=== PATIENT | male | born 1975 | race Caucasian/White ===

== ENCOUNTER 2016-02-20 10:02 | Outpatient (RCR) | payer MEDICARE, MEDICAID ==
[~2016-02-20 10:02] MED LIST: CLARITIN 1010 MG/TAB PO; FIBER CHOICE1 CTB PO; KEPPRA1000 MG PO; LAMICTAL200 MG PO; LEXAPRO20 MG PO; MULTIPLE VITAMI1 CAP PO; NASONEX SPRAY17 GM NS; NEXIUM 40MG40 MG PO; TOPAMAX 100MG100 M1 PO; TYLENOL 325MG325 MG PO; VITAMIN D50000 I2 PO; ZONEGRAN 100MG100 MG PO
== END 2016-04-21 12:40 | disposition still patient (30) ==
LOC: WSPT 10:02
DX: R27.0 Ataxia, unspecified (principal)
CPT/HCPCS: G8979-GP; G8980-GP

== ENCOUNTER 2018-11-29 10:02 | Emergency (ER) | payer MEDICARE, MEDICAID ==
[~2018-11-29] VITALS: Wt 77.3 kg
[2018-11-29] MEDS ORDERED: ALEVE 220MG220 MG PO (11:00)
[2018-11-29] MEDS ORDERED: PROTONIX 40MG T40 MG PO (11:01)
[2018-11-29] MEDS ORDERED: CEPHALEXIN500 M1 PO (11:42)
[2018-11-29 12:10] VITALS: BP 117/85; PULSE 83
== END 2018-11-29 12:10 | disposition home or self-care (01) ==
LOC: COL.ER 10:02
DX: S01.511A Laceration without foreign body of lip, initial encounter (principal); G40.909 Epilepsy, unspecified, not intractable, without status epilepticus; K21.9 Gastro-esophageal reflux disease without esophagitis; F32.9 Major depressive disorder, single episode, unspecified; W22.8XXA Striking against or struck by other objects, initial encounter; Y92.009 Unspecified place in unspecified non-institutional (private) residence as the place of occurrence of the external cause

== ENCOUNTER → 2021-08-26 | Outpatient (CLI) | payer MEDICARE, MEDICAID ==
[~2021-08-26] MED LIST changes: +ALEVE 220MG220 MG PO; +CEPHALEXIN500 M1 PO; +EPIDIOLEX100 MG/1 M PO; +FIBERCON PO; +FLOMAX 0.40.4 MG/CAP PO; +LAMICTAL150 MG PO; +NAPROXEN 3375 MG/TAB PO; +NASONEX SPRAY17 GM IH; +NORCO 325 MG-51 TAB PO; +PROTONIX 40MG T40 MG PO; +TAB-A-VITE1 TA3 PO; +TINACTIN1% TP; +VITAMIND3 5000 PO; +VOLTAREN GEL 1%1 TU TP
== END ==
LOC: COL.RAD 14:01
DX: N20.0 Calculus of kidney (principal)

== ENCOUNTER 2021-08-29 10:40 | Day surgery (SDC) | payer MEDICARE, MEDICAID ==
[~2021-08-29] VITALS: Ht 172.7 cm; Wt 73.2 kg
[~2021-08-29 10:40] MED LIST changes: -EPIDIOLEX100 MG/1 M PO; -FIBERCON PO; -FLOMAX 0.40.4 MG/CAP PO; -LAMICTAL150 MG PO; -NAPROXEN 3375 MG/TAB PO; -NASONEX SPRAY17 GM IH; -NORCO 325 MG-51 TAB PO; -TAB-A-VITE1 TA3 PO; -TINACTIN1% TP; -VITAMIND3 5000 PO; -VOLTAREN GEL 1%1 TU TP
[2021-08-29 12:19] VITALS: BP 133/80; PULSE 85; TEMP 97.7
[2021-08-29] MEDS ORDERED: VITAMIND3 5000 PO (12:39)
[2021-08-29] MEDS ORDERED: PROTONIX 40MG T40 MG PO (12:40)
[2021-08-29] MEDS ORDERED: NASONEX SPRAY17 GM IH (12:42)
[2021-08-29] MEDS ORDERED: FIBERCON PO (12:44)
[2021-08-29] MEDS ORDERED: TAB-A-VITE1 TA3 PO (12:44)
[2021-08-29] MEDS ORDERED: LAMICTAL150 MG PO (12:45)
[2021-08-29] MEDS ORDERED: LEXAPRO20 MG PO (12:46)
[2021-08-29] MEDS ORDERED: EPIDIOLEX100 MG/1 M PO (12:48)
[2021-08-29] MEDS ORDERED: VOLTAREN GEL 1%1 TU TP (12:49)
[2021-08-29] MEDS ORDERED: NAPROXEN 3375 MG/TAB PO (12:49)
[2021-08-29] MEDS ORDERED: TINACTIN1% TP (12:51)
[2021-08-29] MEDS ORDERED: CLARITIN 1010 MG/TAB PO (12:52)
[2021-08-29] MEDS ORDERED: FLOMAX 0.40.4 MG/CAP PO (14:08)
[2021-08-29] MEDS ORDERED: NORCO 325 MG-51 TAB PO (14:09)
[2021-08-29 14:26] VITALS: TEMP 97.3
[2021-08-29 14:45] VITALS: BP 124/78; PULSE 73
--- NOTE | 2021-08-29 14:45 | NUR ---
Patient returns to room 6 per cart from PACU accompanied by Clair DALTON. Arouses to verbal stimuli. Brother in the room and does sign language. IV fluids infusing. On oxygen at 2l per nasal cannuala. Temp 98.0. Siderails up x2 and allowed to rest.
[2021-08-29 15:00] VITALS: BP 120/78; PULSE 70
--- NOTE | 2021-08-29 15:00 | NUR ---
Indicates to brother that he needs to urinate. Brother assists patient to edge of cart and patient voids 100cc's charles red urine. IV continues to infuse.
[2021-08-29 15:15] VITALS: BP 123/71; PULSE 79
--- NOTE | 2021-08-29 15:15 | NUR ---
Eating ice cream and drinking water. Denies pain when asked by brother.
--- NOTE | 2021-08-29 15:31 | NUR ---
Brother requests patient have pain medication prior to discharge and states that they have a 2 [address] ride home. Percocet given. IV discontinued. Brother assists patient with dressing and patient tolerates will. Very pleasant and cooperative.
--- NOTE | 2021-08-29 15:43 | NUR ---
Dismissal instructions given to brother and he voices understanding of these. Provided office number for questions and concerns.
--- NOTE | 2021-08-29 15:47 | NUR ---
Patient dismissed to care of brother and taken to vehicle per wheelchair and assisted into Jeep. Seat belt on. Dismissal instructions in hand. Will go to [facility] and leaf size picker prescritions.
== END 2021-08-29 15:47 | disposition home or self-care (01) ==
LOC: SDCO 10:40
DX: N20.2 Calculus of kidney with calculus of ureter (principal)
CPT/HCPCS: C1758; C1769; C2617; J0690; J1100; J1885; J2405; J2704; J3010; J7120

== ENCOUNTER 2021-09-19 09:27 | Day surgery (SDC) | payer MEDICARE, MEDICAID ==
[~2021-09-19] VITALS: Ht 172.7 cm; Wt 73.9 kg
[~2021-09-19 09:27] MED LIST changes: +EPIDIOLEX100 MG/1 M PO; +FIBERCON PO; +FLOMAX 0.40.4 MG/CAP PO; +LAMICTAL150 MG PO; +NAPROXEN 3375 MG/TAB PO; +NASONEX SPRAY17 GM IH; +NORCO 325 MG-51 TAB PO; +TAB-A-VITE1 TA3 PO; +TINACTIN1% TP; +VITAMIND3 5000 PO; +VOLTAREN GEL 1%1 TU TP
[2021-09-19 11:24] VITALS: BP 108/78; PULSE 77; TEMP 97.2
[2021-09-19 11:55] VITALS: BP 102/73; PULSE 67; TEMP 97.5
[2021-09-19 12:10] VITALS: BP 103/74; PULSE 73; TEMP 97.7
[2021-09-19 12:25] VITALS: BP 110/74; PULSE 78; TEMP 97.6
[2021-09-19 12:40] VITALS: BP 98/70; PULSE 82; TEMP 97.8
[2021-09-19 13:10] VITALS: BP 101/63; PULSE 84; TEMP 97.8
--- NOTE | 2021-09-19 13:20 | NUR ---
DISCHARGE EDUCATION COMPLETED WITH PT'S BROTHER. VERBALIZED UNDERSTANDING OF HOME AND FOLLOW UP CARE. ALL QUESTIONS ANSWERED. DISCHARGE PAPERWORK GIVEN TO PT'S BROTHER.
--- NOTE | 2021-09-19 13:35 | NUR ---
PT OFF UNIT PER PERSONAL WHEELCHAIR. PT DISCHARGE TO HOME WITH BROTHER PER PERSONAL VEHICLE.
== END 2021-09-19 13:35 | disposition home or self-care (01) ==
LOC: SDCO 09:27
DX: T19.1XXA Foreign body in bladder, initial encounter (principal)
CPT/HCPCS: J0690; J1100; J1885; J2405; J2704; J3010; J7120

== ENCOUNTER 2021-10-23 08:10 | Day surgery (SDC) | payer MEDICARE, MEDICAID ==
[~2021-10-23] VITALS: Ht 175.3 cm; Wt 76.9 kg
[2021-10-23] MEDS ORDERED: VITAMIND3 5000 PO (08:43)
[2021-10-23 09:36] VITALS: BP 119/87; PULSE 79; TEMP 98.3
[2021-10-23 13:30] VITALS: BP 117/54; PULSE 89; TEMP 97.1
--- NOTE | 2021-10-23 13:30 | NUR ---
PATIENT ARRIVES TO ROOM 1 VIA CART. PATIENT IS ALERT, HE IS NON-VERBAL SO DAD COMMUNICATES FOR HIM. VITAL SIGNS WNL. PATIENT SIGNED TO DAD THAT HE NEEDED TO USE A URINAL. URINAL GIVEN AND HE VOIDED 100 CC'S. PATIENT DOESN'T WANT ANYTHING TO EAT OR DRINK, HE WOULD LIKE TO REST. WILL CONTINUE TO MONITOR.
[2021-10-23 13:45] VITALS: BP 107/61; PULSE 83
--- NOTE | 2021-10-23 13:45 | NUR ---
PATIENT IS RESTING COMFORTABLY. VITAL SIGNS WNL. FATHER STATES HE DOESN'T NEED ANYTHING AT THIS TIME.
[2021-10-23 14:00] VITALS: BP 118/61; PULSE 85
--- NOTE | 2021-10-23 14:00 | NUR ---
PATIENT IS STILL RESTING COMFORTABLY. HIS BROTHER STATES THAT HE NORMALLY TAKES A WHILE TO WAKE UP FROM ANESTHESIA. VITAL SIGNS WNL. WILL CONTINUE TO MONITOR.
--- NOTE | 2021-10-23 14:57 | NUR ---
PATIENT IS AWAKE, HE REQUESTS ICE CREAM AND A SPRITE. HE IS TOLERATING THEM WELL. VITAL SIGNS WNL. WILL CONTINUE TO MONITOR.
[2021-10-23 15:00] VITALS: BP 132/51; PULSE 97; TEMP 97
== END 2021-10-23 15:20 | disposition home or self-care (01) ==
LOC: SDCO 08:10
DX: K02.9 Dental caries, unspecified (principal); Q27.0 Congenital absence and hypoplasia of umbilical artery; G40.909 Epilepsy, unspecified, not intractable, without status epilepticus; F48.9 Nonpsychotic mental disorder, unspecified
CPT/HCPCS: J0690; J1100; J2405; J2704; J3010; J7120

== ENCOUNTER 2021-11-05 11:00 | Outpatient (RCR) | payer MEDICARE, MEDICAID | END 2021-11-09 | disposition home or self-care (01) | LOC: MKS.ESL.PT | DX: Q27.9 Congenital malformation of peripheral vascular system, unspecified (principal) ==

== ENCOUNTER 2021-12-08 11:00 | Outpatient (RCR) | payer MEDICARE, MEDICAID | END 2021-12-10 | disposition home or self-care (01) | LOC: MKS.ESL.PT | DX: Q27.9 Congenital malformation of peripheral vascular system, unspecified (principal); R53.1 Weakness ==

== ENCOUNTER 2022-02-05 07:44 | Day surgery (SDC) | payer MEDICARE, MEDICAID ==
[~2022-02-05] VITALS: Ht 175.3 cm; Wt 76.9 kg
[2022-02-05] VITALS (7 sets, daily range): BP systolic 105–121; BP diastolic 65–86; PULSE 86–100; TEMP 97.4–98.1
--- NOTE | 2022-02-05 15:25 | NUR ---
1330 RETURNS TO ROOM 7 FROM PACU PER CART. DROWSY, AROUSES EASILY TO TOUCH. PATIENT CALM, RESP UNLABORED. BROTHER AT SIDE. NO ORAL BLEEDING OBSERVED. COMMUNICATION WITH PATIENT DONE WITH BROTHER'S ASSISTANCE. 1400 AWAKE, ALERT. COOPERATIVE. TOLERATES PO WATER. SWALLOWS WITHOUT DIFFICULTY. 1430 AWAKE. VERY COOPERATIVE. VITAL SIGNS STABLE. 1500 DISCHARGE INSTUCTIONS REVIEWED WITH PATRICK, PATIENT'S MECHANICAL INTERN. COPY OF INSTRUCTIONS PROVIDED AT DISCHARGE. 1515 SITS ON EDGE OF BED. DRESSES WITH ASSISTANCE THEN TO WHEELCHAIR TO BATHROOM. STANDS WITH ASSISTANCE. VOIDS. 1525 DISCHARGED PER WHEELCHAIR TO [facility]. ACCOMPANIED BY THIS NURSE AND PATRICK WHO WILL TRANSPORT PATIENT TO [facility].
== END 2022-02-05 15:25 | disposition home or self-care (01) ==
LOC: SDCO 07:44
DX: K02.9 Dental caries, unspecified (principal); F79 Unspecified intellectual disabilities; H90.5 Unspecified sensorineural hearing loss; Q03.9 Congenital hydrocephalus, unspecified; G40.909 Epilepsy, unspecified, not intractable, without status epilepticus; K21.9 Gastro-esophageal reflux disease without esophagitis
CPT/HCPCS: J0690; J1100; J2250; J2405; J2704; J3010; J7120

== ENCOUNTER 2022-04-29 11:15 | Outpatient (RCR) | payer MEDICARE, MEDICAID ==
[2022-05-01] MEDS ORDERED: CEFTIN 250250 MG/TAB PO (23:19)
[2022-05-01] MEDS ORDERED: PRELONE15 MG/5 ML PO (23:19)
== END 2022-05-12 | disposition home or self-care (01) ==
LOC: MKS.ESL.PT
DX: Q27.9 Congenital malformation of peripheral vascular system, unspecified (principal)

== ENCOUNTER 2022-07-08 11:15 | Outpatient (RCR) | payer MEDICARE, MEDICAID ==
[~2022-07-08 11:15] MED LIST changes: +CEFTIN 250250 MG/TAB PO; +PRELONE15 MG/5 ML PO
== END 2022-07-10 | disposition home or self-care (01) ==
LOC: MKS.ESL.PT
DX: Q27.9 Congenital malformation of peripheral vascular system, unspecified (principal); R53.1 Weakness; R26.89 Other abnormalities of gait and mobility

== ENCOUNTER 2022-08-05 11:15 | Outpatient (RCR) | payer MEDICARE, MEDICAID | END 2022-08-09 | disposition home or self-care (01) | LOC: MKS.ESL.PT | DX: Q27.9 Congenital malformation of peripheral vascular system, unspecified (principal); R53.1 Weakness; R26.89 Other abnormalities of gait and mobility ==

== ENCOUNTER 2023-08-19 16:12 | Outpatient (RCR) | payer MEDICARE, MEDICAID ==
[~2023-08-19 16:12] MED LIST changes: -NASONEX SPRAY17 GM IH; +TAB-A-VITE TA400 MCG PO; -TAB-A-VITE1 TA3 PO
[2023-08-23] MEDS ORDERED: EC-NAPROSYN375 MG PO (10:21)
[2023-08-23] MEDS ORDERED: [UNRECOGNIZED DRUG - OTHER] TOP (10:21)
== END 2023-09-10 | disposition home or self-care (01) ==
LOC: MKS.ESL.PT
DX: Q03.9 Congenital hydrocephalus, unspecified (principal); Z91.81 History of falling

== ENCOUNTER 2023-08-22 11:20 | Inpatient (IN) | payer MEDICARE, MEDICAID ==
[2023-08-22] VITALS (8 sets, daily range): BP systolic 68–108; BP diastolic 54–85; PULSE 83–112; TEMP 97.4–98.5
[~2023-08-22] VITALS: Ht 172.7 cm; Wt 67.0 kg
[2023-08-22 11:45] LABS: HEMATOCRIT 41.2 % (42.0-52.0); HEMOGLOBIN 13.8 g/dl (13.5-18.0); MEAN CELL VOLUME 97 fl (80.0-100.0); MEAN CORPUSCULAR HEMOGLOBIN 32 pg (27-31); MEAN CORPUSCULAR HGB CONC 34 g/dl (33.0-37.0); MEAN PLATELET VOLUME 10.1 fl (7.4-10.4); PLATELET COUNT 274 K/mm3 (130-400); RED BLOOD COUNT 4.27 M/mm3 (4.20-5.60)
[2023-08-22] MEDS ORDERED: Etomidate 20 MG/10 ML VIAL IV ONE (11:45)
[2023-08-22] MEDS ORDERED: NS 1,000 ML IV ONE ×2 (11:45→13:30)
[2023-08-22] MEDS ORDERED: Rocuronium 50 MG/5 ML Multi-Dose VIAL IV ONE (11:45)
[2023-08-22 11:58] LABS: ALBUMIN 3.7 g/dL (3.5-5.0); BILIRUBIN,TOTAL 0.7 mg/dL (0.2-1.2); CALCIUM 9.2 mg/dL (8.4-10.2); CREATININE, serum 1.27 mg/dL (0.72-1.25); POTASSIUM 3.2 mEq/L (3.5-4.5); TOTAL PROTEIN 6.4 g/dl (6.2-8.1)
[2023-08-22 12:17] LABS: COLLECTION METHOD CATHETER
[2023-08-22 12:26] LABS: BAND 34 % (0-10); LYMPHOCYTE 4 % (20.0-51.0); METAMYELOCYTE 6 % (0-0); NEUTROPHILS 52 % (42.0-75.2); PLATELET ESTIMATE NORMAL (NORMAL)
[2023-08-22 12:27] LABS: URINE APPEARANCE CLOUDY (CLEAR/HAZY); URINE BLOOD 1+ (NEGATIVE); URINE COLOR Dark Yellow (YELLOW); URINE GLUCOSE NEGATIVE (NEGATIVE); URINE KETONE TRACE (NEGATIVE); URINE NITRATE NEGATIVE (NEGATIVE); URINE PROTEIN(semi-quant) 1+ (NEGATIVE)
[2023-08-22] MEDS ORDERED: Morphine 4 MG/ML VIAL IV ONE (15:15)
--- NOTE | 2023-08-22 15:44 | NUR ---
PT EXTUBATED WITHOUT COMPLICATIONS TO RA SPO2 97%.... RN IN ROOM SISTER AND BROTHER AT BEDSIDE.
[2023-08-22] MEDS ORDERED: Albuterol 0.083% Neb Soln 2.5 MG/3 ML UD IH PRN (16:00)
[2023-08-22] MEDS ORDERED: LORazepam 2 MG/ML 1 ML VIAL IV PRN (16:30)
[2023-08-22] MEDS ORDERED: Ondansetron 4 MG/2 ML VIAL IV PRN (16:30)
[2023-08-22] MEDS ORDERED: Morphine 4 MG/ML VIAL IV PRN (16:30)
[2023-08-22] MEDS ORDERED: *Potassium Replacement Protocol MC SCH (16:30)
[2023-08-22] MEDS ORDERED: Scopolamine 1 MG Delivered 3-Day PATCH TD ONE (16:30)
--- NOTE | 2023-08-22 16:50 | NUR ---
Pt admitted to medical unit to room 358. Pt is alert but not oriented with cognitive deficits. Admission intake and physical assessment completed. Pt unable to express verbally. Pt is deaf, and communicates with signs. Brother DPOA at bedside. Advance directives in pt's chart. Hansen catheter in place with dark yellow, and cloudy urine in place. Oxymask at 10L. RAC and LAC INT with skin intact are in place. Tele placed. Pt on seizure precautions, and fall risk. SCDs in place. Bed in lowest position. Belongings and call light within reach.
--- NOTE | 2023-08-22 18:50 | NUR ---
PATIENT RESTING SITTING UP IN BED WITH BROTHER AT BEDSIDE WITH TV ON WITH NO ACUTE DISTRESS NOTED. PATIENT ON 10 LITERS VIA OXY MASK. INTs TO RIGHT AND LEFT ACs INTACT WITH NO COMPLICAITONS NOTED. ADAME CATH INTACT, PATENTS, AND LEAKING. PATIENT AGITATED WITH FEELING OF NEEDING TO GO PEE. PATIENT CARE ASSUMED FROM [facility]. BED IN LOW POSITION WITH WHEELS LOCKED WITH RAILS UP X3 AND CALL LIGHT WITHIN REACH. SEIZURE PRECAUTIONS IN PLACE. BED ALARM ON. 1902- SEIZURE LIKE ACTIVITY NOTED IN PATIENT WITH ARMS STIFF AND HEAD TILTING BACK. EPISODE LASTED ABOUT 30 SECONDS. PATIENT ABLE TO SIGN HE WAS OKAY TO BROTHER ONCE OVER. 1907- SECOND SERIZURE LIKE ACTIVITY NOTED IN PATIENT WITH ARMS DRAWING INTO POSITION AND HEAD TILTING BACK. EPISODE LASTED ABOUT 15 SECONDS. PATIENT ABLE TO SIGN TO HIS BROTHER HE WAS OKAY. 1909- ADAME CATHETER DISCONTINUED WITH 10 ML OF WATER REMOVED AND CATHETER PULLED OUT INTACT. KAREN CARE PROVIDED AND PATIENT VOIDED 5 ML INTO URINAL AFTER. ADAME BAG EMPTIED OF 200 ML OF CLEAR ARAM URINE. PATIENT TOLERATED WELL. RASH NOTED TO LOWER ABDOMEN FOLD AND KAREN AREA. BROTHER VERBALIZED UNDERSTANDING THAT HOSPITALIST WOULD BE CALLED. DPOA REQUSTED WATER, ICE, SPRITE, AND SOMETHING FOR PATIENT TO EAT. PRIMARY NURSE INFORMED DPOA THAT SHE WOULD BRING SOME BACK. 1914- DPOA STATED PATIENT HAD 3 MORE SEIZURES WHILE PRIMARY NURSE WAS OUT OF ROOM. PATIENT GIVEN PITCHER OF WATER AND ICE, SPRITE, APPLE SAUCE, JELLO, AND PUDDING. DPOA STATES WHEN PATIENT IS ANXIOUS HE HAS MORE SERIZURE ACTIVITY. PRIMARY NURSE ASKED DPOA ABOUT MD ORDER FOR ATIVAN. DPOA AGREED THAT WOULD HELP.
--- NOTE | 2023-08-22 19:02 | NUR ---
DPOA states that the patient is unconfortable with the [place] cathter, and per JACKI White, orders received to DC [place] catheter.
--- NOTE | 2023-08-22 19:45 | NUR ---
PATIENT RESTING IN BED WITH BROTHER AT BEDSIDE WITH TV ON WITH NO ACUTE DISTRESS NOTED. PATIENT ON 8 LITERS OF OXYMASK. ZOSYN INFUSING INTO LEFT AC AND INT TO RIGHT AC INTACT WITH NO COMPLICATIONS NOTED FROM EITHER. ASSESSMENT AND MEDICATION ADMINISTRATION COMPLETED AT THIS TIME. PATIENT TOLERATED WELL. ALL NEEDS MET. BED IN LOW POSITION WITH WHEELS LOCKED WITH RAILS UP X3 AND CALL LIGHT WITHIN REACH. BED ALARM ON AND SEIZURE PRECAUTIONS IN PLACE.
--- NOTE | 2023-08-22 20:35 | NUR ---
HOSPITALIST TIA CALLED ABOUT PATIENT RASH TO KAREN AREA AND ABDOMENIAL FOLDS. ORDER RECIEVED FOR [place]ST[place] CREAM.
[2023-08-22] MEDS ORDERED: Nystatin 100,000 Units/GM Cream 15 GM TUBE TP SCH (21:00)
[2023-08-23] VITALS (8 sets, daily range): BP systolic 94–132; BP diastolic 47–66; PULSE 94–106; TEMP 98.3–100.7
--- NOTE | 2023-08-23 07:00 | NUR ---
Pt resting in bed. Brother bedside. Pt is on oxymask at 10L. Pt is in seizure precautions and fall precautions. Bedalarm active. Brother instructed to call with all needs. 0830- Spoke with brother (jesse) and SW regarding goals of care and plan. Brother would like more information from provider before making a decision and is more focused on Pt's quality of life. 5996-Attempted to update , she stated she would just go see the Pt.
[2023-08-23 07:22] LABS: HEMOGLOBIN 11.9 g/dl (13.5-18.0); MEAN CELL VOLUME 93 fl (80.0-100.0); MEAN CORPUSCULAR HEMOGLOBIN 32 pg (27-31); MEAN CORPUSCULAR HGB CONC 35 g/dl (33.0-37.0); MEAN PLATELET VOLUME 10.1 fl (7.4-10.4); PLATELET COUNT 207 K/mm3 (130-400); RED BLOOD COUNT 3.69 M/mm3 (4.20-5.60); REDCELL DISTRIBUTION WIDTH-CV 13.2 % (11.5-14.5)
[2023-08-23 07:25] LABS: HEMATOCRIT 34.3 % (42.0-52.0)
[2023-08-23 07:40] LABS: ALBUMIN 2.9 g/dL (3.5-5.0); CALCIUM 9.3 mg/dL (8.4-10.2); CREATININE, serum 0.93 mg/dL (0.72-1.25); MAGNESIUM 1.7 mg/dL (1.6-2.6); PHOSPHOROUS 2.9 mg/dL (2.3-4.7); POTASSIUM 3.8 mEq/L (3.5-4.5)
[2023-08-23 08:30] LABS: BAND 14 % (0-10); LYMPHOCYTE 13 % (20.0-51.0); NEUTROPHILS 69 % (42.0-75.2); PLATELET ESTIMATE NORMAL (NORMAL)
[2023-08-23] MEDS ORDERED: [UNRECOGNIZED DRUG - OTHER] TOP (10:21)
[2023-08-23] MEDS ORDERED: EC-NAPROSYN375 MG PO (10:21)
[2023-08-23] MEDS ORDERED: D5W 500 ML IV SCH (10:30)
[2023-08-23] MEDS ORDERED: Ketorolac 15 MG/ML VIAL IV PRN (10:45)
[2023-08-23] MEDS ORDERED: lamoTRIgine 25 MG TAB PO SCH (11:00)
[2023-08-23] MEDS ORDERED: lamoTRIgine 100 MG TAB PO SCH (11:00)
--- NOTE | 2023-08-23 11:03 | NUR ---
PATIENT DOWN TO 5 LPM, SPO2 93%. WILL CHECK BACK.
[2023-08-23] MEDS ORDERED: levETIRAcetam 3,000 MG in NS 100 ML IV ONE (11:15)
--- NOTE | 2023-08-23 11:27 | NUR ---
PATIENT DOES NOT QUALIFY FOR HOME O2. PATIENT STAYED ABOVE 92% ON ROOM AIR DURING WALK.
--- NOTE | 2023-08-23 11:42 | NUR ---
1020-CALLED SPEECH FOR CONSULT. NEED TO EVAL PRIOR TO PO MEDS. 1045-SPEECH CALLED AGAIN PER PROVIDERS REQUEST, SO WE CAN ASSESS PRIOR TO ORAL MEDICATIONS.
--- NOTE | 2023-08-23 11:47 | NUR ---
1120-SPOKE WITH PT'S BROTHER REGARDING PLAN. WILL GIVE IV KEPPRA WHILE AWAITING SPEECH EVAL. PT STILL LETHARGIC BUT WILL OPEN EYES AND INTERMITTENTLY SIGN TO BROTHER. JEROMY GRANT TO BRING PTS HOME MED FOR SEIZURES AND WILL HAVE PHARMACY LABLE.
--- NOTE | 2023-08-23 13:04 | NUR ---
1215-BROTHER BROUGHT THIS RN PTS HOME MED EPIDIOLEX. SENT DOWN TO PHARMACY TO GET LABLED. DOMINGO ECHEVERRIA NOTIFIED AND ORDERS PLACED.
--- NOTE | 2023-08-23 14:14 | NUR ---
Manager Critical Care Unit met with patient's brother/guardian, Jesse (ph#[phone]) at bedside to complete initial intake for patient, "Troy". Jesse advised he lives in [place] and was contacted by his sister, Leroy who informed him she was notified by [facility] that patient was in the ER and had been intubated. Patient lives in a retirement with [facility] and also attends their Day Services program. Jesse expressed frustration that [facility] did not notify him as the primary contact and Guardian that patient was hospitalized, let alone intubated. Jesse also advised [facility] has a copy of patient's DNR, so he questioned why patient was intubated. Jesse would like to speak with the Hospitalist team on patient's plan of care moving forward as patient was extubated and transferred to the Medical floor. Patient sees Dr. Bradley for primary care and his medications are managed by staff at [facility]. Patient has a manual wheelchair and does receive some assistance with ADLS. Patient is hearing impaired and communicates with sign language. Patient was not alert and oriented at time of intake. SW contacted patient's Director Adult, Vannesa (ph#[phone]) and faxed clinical updates. Vannesa provided copy of [facility] paperwork via fax, which SW placed on patient's chart. Jesse and Liana are co-guardians. Jesse reported that Liana now lives locally but lived out of state for many years, which is why he has been the primary point of contact and who helps coordinate patient's care. JAMIE attended clinical rounds with the team and Hospitalist and Jesse had a discussion about plan of care. At this time, plan is to continue with treatment to see if patient improves at all. Jesse expressed that quality of life is what is most important when it comes to decision making for patient and that he will consider comfort care if patient does not improve. Discharge Plan: Pending progress, Return to [facility] if able vs possible comfort care and alternative placement
[2023-08-23] MEDS ORDERED: D5W 500 ML IV ONE (18:30)
--- NOTE | 2023-08-23 18:50 | NUR ---
REPORT RECIEVED FROM BROTHER AT BEDSIDE. PATIENT RESTING WITH NO ACUTE DISTRESS NOTED. PATIENT ON 3 LITERS OF OXYGEN VIA NC. DPOA DENIES ANY NEEDS AT THIS TIME. BED IN LOW POSITION WITH WHEELS LOCKED WITH RAILS UP X3 AND CALL LIGHT WITHIN REACH. BED ALARM ON AND SEIZURE PRECAUTIONS IN PLACE.
[2023-08-23] MEDS ORDERED: levETIRAcetam 1,000 MG in Syringe 1 EACH IV SCH (21:00)
[2023-08-23] MEDS ORDERED: Patient's Own Medication Item PO SCH (21:00)
--- NOTE | 2023-08-23 21:05 | NUR ---
PATIENT RESTING LYING ON RIGHT SIDE WITH BROTHER SITTING IN BEDSIDE RECLINER WITH TV ON WITH NO ACUTE DISTRTESS NOTED. PATIENT ON OXYMASK. INT TO RIGHT AC INTACT WITH NO COMPLICATIONS NOTED. D5W STARTED AND INFUSING INTO LEFT AC WITH NO COMPLICATIONS NOTED. ASSESSMENT AND MEDICATION ADMINISTRTION COMPLETED. PAITENT TOLERATED WELL. KAREN CARE PERFORMED AND BLAKETS CHANGED. PATIENT PULLED UP IN BED AND HELPED TO REPOSITION FOR COMFORT. ALL NEEDS MET. BED IN LOW POSITION WITH WHEELS LOCKED WITH RAILS UP X3 AND CALL LIGHT WITHIN REACH. BED ALARN ON WITH SEIZURE PRECAUTIONS IN PLACE.
[2023-08-24] VITALS: BP 97/57; PULSE 90; TEMP 99.3
[2023-08-24 00:05] VITALS: BP_SYST 97
[2023-08-24 03:41] VITALS: BP 95/53; PULSE 83; TEMP 99.6
[2023-08-24 03:56] VITALS: BP_SYST 95
[2023-08-24 07:21] LABS: BASO % 0.3 % (0.0-2.0); EOS # 0.1 K/mm3 (0.0-0.7); EOS % 0.6 % (0.0-4.0); HEMOGLOBIN 10.1 g/dl (13.5-18.0); LYMPH # 1.3 K/mm3 (1.2-3.4); LYMPH % 14.7 % (20.0-51.0); MEAN CELL VOLUME 94 fl (80.0-100.0); MEAN CORPUSCULAR HEMOGLOBIN 32 pg (27-31); MEAN CORPUSCULAR HGB CONC 35 g/dl (33.0-37.0); MEAN PLATELET VOLUME 10.1 fl (7.4-10.4); MONO # 0.3 K/mm3 (0.1-0.6); MONO % 3.6 % (1.7-9.3); PLATELET COUNT 188 K/mm3 (130-400); RED BLOOD COUNT 3.13 M/mm3 (4.20-5.60); REDCELL DISTRIBUTION WIDTH-CV 13.2 % (11.5-14.5)
[2023-08-24 07:24] LABS: HEMATOCRIT 29.3 % (42.0-52.0)
[2023-08-24 07:42] LABS: CALCIUM 9.3 mg/dL (8.4-10.2); CREATININE, serum 0.72 mg/dL (0.72-1.25); MAGNESIUM 1.8 mg/dL (1.6-2.6); POTASSIUM 3.3 mEq/L (3.5-4.5)
[2023-08-24] MEDS ORDERED: *Potassium Replacement Protocol MC SCH (08:00)
[2023-08-24] MEDS ORDERED: Potassium Chloride 100 ML IV SCH (08:00)
[2023-08-24 08:19] VITALS: BP 98/58; PULSE 69; TEMP 97.6
[2023-08-24 11:52] VITALS: BP 96/54; PULSE 77; TEMP 97.6
--- NOTE | 2023-09-20 12:58 | NUR ---
DOWNTIME NOTE: An Electronic Health Record (EHR) downtime event occurred during this patient's care. For legal medical record information generated during the downtime period, please reference the patient's legal medical record. Paper or scanned documentation has been incorporated into the legal medical record which is maintained in accordance with Health Information Management (HIM) and record retention policies.
[2023-10-12 14:18] LABS: BLOOD UREA NITROGEN 18 mg/dL (8-26); CREATININE, serum 0.69 mg/dL (0.72-1.25); GLUCOSE 51 mg/dL (70-99); POTASSIUM 3.7 mEq/L (3.5-4.5); SODIUM 143 mEq/L (136-145)
[2023-10-12 14:19] LABS: ALANINE AMINOTRANSFERASE 17 U/L (0-55); ALBUMIN 2.6 g/dL (3.5-5.0); ALKALINE PHOSPHATASE 56 U/L (40-150); AST,SGOT 27 U/L (5-34); BILIRUBIN,TOTAL 1.3 mg/dL (0.2-1.2); CALCIUM 9.3 mg/dL (8.4-10.2); CHLORIDE 110 mEq/L (98-107); TOTAL PROTEIN 5.7 g/dl (6.2-8.1)
[2023-10-12 14:20] LABS: HEMATOCRIT 30.1 % (42.0-52.0); HEMOGLOBIN 10.3 g/dl (13.5-18.0); MEAN CELL VOLUME 95 fl (80.0-100.0); MEAN CORPUSCULAR HEMOGLOBIN 32 pg (27-31); RED BLOOD COUNT 3.18 M/mm3 (4.20-5.60)
[2023-10-12 14:21] LABS: BASO % 0.4 % (0.0-2.0); EOS # 0.1 K/mm3 (0.0-0.7); EOS % 0.7 % (0.0-4.0); GRAN # 6.5 K/mm3 (1.4-6.5); GRAN % 76.3 % (42.2-75.2); LYMPH # 1.5 K/mm3 (1.2-3.4); LYMPH % 17.4 % (20.0-51.0); MEAN CORPUSCULAR HGB CONC 34 g/dl (33.0-37.0); MEAN PLATELET VOLUME 9.7 fl (7.4-10.4); MONO # 0.4 K/mm3 (0.1-0.6); MONO % 4.4 % (1.7-9.3); PLATELET COUNT 219 K/mm3 (130-400)
== END 2023-08-28 21:07 | disposition expired | DRG 871 ==
LOC: COL.ER 11:20 → MEDICAL 13:07
PROVIDERS: Personal Emergency Response Attendant; ADMIT Internal Medicine
DX: A41.9 Sepsis, unspecified organism (principal); J69.0 Pneumonitis due to inhalation of food and vomit; J96.01 Acute respiratory failure with hypoxia; E87.0 Hyperosmolality and hypernatremia; D64.9 Anemia, unspecified; E87.6 Hypokalemia; F79 Unspecified intellectual disabilities; G40.909 Epilepsy, unspecified, not intractable, without status epilepticus; Z66 Do not resuscitate; K21.9 Gastro-esophageal reflux disease without esophagitis
CPT/HCPCS: A4314; J1650; J1953; J2060; J2270; J2543; J2704; J3480; J7030; J7060